=== PATIENT | male | born 1960 | race Caucasian/White ===

== ENCOUNTER 2019-02-13 10:00 | Outpatient (CLI) | payer BC ==
[~2019-02-13] VITALS: Ht 180.3 cm; Wt 113.4 kg
[2019-02-13] MEDS ORDERED: ASPI-586 PO (10:14)
[2019-02-13] MEDS ORDERED: CHOL200014 PO (10:14)
== END 2019-02-13 10:55 | disposition home or self-care (01) ==
LOC: PREOP 10:00
PROVIDERS: ATTEND Surgery
DX: Z01.818 Encounter for other preprocedural examination (principal)

== ENCOUNTER 2019-02-19 07:57 | Day surgery (SDC) | payer BC ==
[~2019-02-19] VITALS: Ht 180.3 cm; Wt 113.4 kg
[~2019-02-19 07:57] MED LIST: ASPI-586 PO; CHOL200014 PO
[2019-02-19] MEDS ORDERED: NS IV 500 ML 500 ML ONE (08:02)
[2019-02-19 08:15] VITALS: BP 143/90
[2019-02-19] MEDS ORDERED: NS IV 500 ML 500 ML IV PRN (08:24)
[2019-02-19] MEDS ORDERED: LIDOCAINE JELLY 2% 6 ML SYRINGE MM PRN (08:30)
[2019-02-19] MEDS ORDERED: fentaNYL INJECTION 100 MCG/2 ML AMP IVP ONE (08:30)
[2019-02-19] MEDS ORDERED: MIDAZOLAM 2 MG/2 ML (VERSED) VIAL IVP ONE (08:30)
--- NOTE | 2019-02-19 08:53 | Conscious Sedation/ASA ---
Conscious Sedation Pre-Proced Time 08:51 ASA Score 2 For ASA 3 and 4: Consider anesthesia and medical clearance. Also, for patients with a history of failed moderate sedation consider anesthesia. Airway Lungs Heart ASA score ASA 1: a normal healthy patient ASA 2: a patient with a mild systemic disease (mid diabetes, controlled hypertension, obesity ASA 3: a patient with a severe systemic disease that limits activity (angina , COPD, prior Myocardial infarction) ASA 4: a patient with an incapacitating disease that is a constant threat to life (CHF, renal failure) ASA 5: a moribund patient not expected to survive 24 hrs. (ruptured aneurysm) ASA 6: a declared brain- patient whose organs are being harvested. For emergent operations, add the letter E after the classification Mallampati Classification Grade 1 Sedation Plan Discussed options with patient/fam The patient is an appropriate candidate to undergo the planned procedure, sedation, and anesthesia. The patient immediately re-assessed prior to indication. REED WATTS MD Feb 19, 2019 08:53
--- NOTE | 2019-02-19 08:55 | History & Physicial ---
History of Present Illness History of Present Illness Reason for visit/HPI to undergo screening colonoscopy Date of Admission 02/19/19 Date Seen by a Provider: Feb 19, 2019 Time Seen by a Provider: 08:54 I consulted on this patient on 02/19/19 08:53 Attending Physician Reed Watts MD Admitting Physician Giacomo Spencer DO Consult Allergies and Home Medications Allergies Coded Allergies: No Known Drug Allergies (Unverified , 02/13/19) Home Medications Aspirin 81 Mg Tablet.dr, 81 MG PO DAILY, (Reported) Cholecalciferol (Vitamin D3) 2,000 Unit Tablet, 2,000 UNIT PO DAILY, (Reported) Patient Home Medication List Home Medication List Reviewed: Yes Past Pgbxzbw-Nkthtw-Iyjmpt Hx Patient Social History Marrital Status: single Employed/Student: employed Alcohol Use: Denies Use Recreational Drug Use: No Smoking Status: Never a Smoker 2nd Hand Smoke Exposure: No Recent Foreign Travel: No Contact w/other who traveled: No Recent Hopitalizations: No Recent Infectious Disease Expo: No Immunizations Up To Date Tetanus Booster (TDap): Unknown Pediatric: No Date of Pneumonia Vaccine: Sep 05, 2017 Date of Influenza Vaccine: Sep 04, 2018 Seasonal Allergies Seasonal Allergies: Yes Surgeries Yes (UMBILICAL HERNIA, INGUIAL LEFT HERNIA) Respiratory No Cardiovascular Yes Hypertension Neurological No Reproductive System Sexually Transmitted Disease: No HIV/AIDS: No Genitourinary No Gastrointestinal No Musculoskeletal No Endocrine History of Endocrine Disorders: No HEENT History of HEENT Disorders: Yes (GLASSES) Loss of Vision: Bilateral Hearing Impairment: Denies Cancer No Psychosocial History of Psychiatric Problem: No Integumentary History of Skin or Integumenta: No Blood Transfusions History of Blood Disorders: No Adverse Reaction to a Blood Tr: No (N/A) Review of Systems Constitutional: no symptoms reported Respiratory: no symptoms reported Cardiovascular: no symptoms reported Gastrointestinal: no symptoms reported Genitourinary: no symptoms reported Musculoskeletal: no symptoms reported Skin: no symptoms reported Psychiatric/Neurological: No Symptoms Reported Physical Exam Vital Signs Vital Signs - First Documented 02/19/19 08:15 Temp 96.7 Pulse 69 Resp 18 B/P (MAP) 143/90 (107) Pulse Ox 94 O2 Delivery Room Air Capillary Refill : Height, Weight, BMI Height: 5'11.00" Weight: 250lbs. 0.0oz. 113.210059km; 34.9 BMI Method: General Appearance: No Apparent Distress Neck: Normal Inspection Respiratory: Lungs Clear Gastrointestinal: Non Tender, Soft Rectal: Deferred Extremity: Normal Inspection Neurologic/Psychiatric: Alert, Oriented x3 Skin: Warm/Dry Assessment/Plan Assessment and Plan gentleman here to undergo screening colonoscopy. Discussed in detail Admission Diagnosis Admission Status: Other (Outpt Proc) REED WATTS MD Feb 19, 2019 08:55
[2019-02-19] MEDS ORDERED: fentaNYL INJECTION 100 MCG/2 ML AMP ONE (09:06)
[2019-02-19] MEDS ORDERED: MIDAZOLAM 2 MG/2 ML (VERSED) VIAL ONE ×3 (09:06)
[2019-02-19] MEDS ORDERED: LISI-597 PO (09:09)
[2019-02-19] MEDS ORDERED: AMLO5TAB9 PO (09:09)
--- NOTE | 2019-02-19 09:43 | Endo Procedure Record ---
Endo Procedure Report Date of Procedure Last Colonoscopy: Yes (10 YEARS AGO) Feb 19, 2019 Surgeon (s) REED WATTS MD Post Procedure/Op Diagnosis very few sigmoid diverticulae Procedure Performed colonoscopy to cecum Description of Procedure Anesthesia Type: Conscious Sedation Specimen(s) collected/removed none Description of the Procedure Indication for the procedure: This gentleman came in for screening colonoscopy. Informed consent was obtained after reviewing the procedure in detail. Description of the procedure: He was placed in left lateral decubitus position and his vital signs were monitored. Conscious sedation was achieved using Versed and fentanyl. Digital rectal examination was unremarkable. The colonoscope was then introduced into the rectum and advanced all the way up to the cecum. It was then withdrawn slowly and the mucosa examined in a systematic fashion. Finding: Sigmoid diverticulosis. No polyps were found. He tolerated the procedure well and was taken back to the nursing area in a stable condition. Impression: Screening colonoscopy. No polyps. No family history. Recommend repeating in 10 years. Copy Copies To 1: KEON BRAR XAVIER M MD Feb 19, 2019 09:43
--- NOTE | 2019-02-19 09:43 | Discharge Inst-Simple/Standard ---
Discharge Inst-Standard Discharge Medications New, Converted or Re-Newed RX: Other Patient Instructions/Follow Up Plan of Care/Instructions/FU: repeat colonoscopy in 10 years Activity as Tolerated: Yes Discharge Diet: No Restrictions REED WATTS MD Feb 19, 2019 09:43
[2019-02-19 09:50] VITALS: BP 110/72
[2019-02-19 10:20] VITALS: BP 116/79
== END 2019-02-19 10:45 | disposition home or self-care (01) ==
LOC: ENDO 07:57
PROVIDERS: ATTEND Surgery
DX: Z12.11 Encounter for screening for malignant neoplasm of colon (principal); K57.30 Diverticulosis of large intestine without perforation or abscess without bleeding; I10 Essential (primary) hypertension; Z79.82 Long term (current) use of aspirin